=== PATIENT | male | born 1985 | race Caucasian/White ===

== ENCOUNTER 2018-01-18 16:55 | Emergency (ER) | payer OTHER ==
[~2018-01-18] VITALS: Ht 182.9 cm; Wt 84.8 kg
[~2018-01-18 16:55] MED LIST: ACEBUTCAFT PO; ACET325 PO; AMOX500 PO; AZIT500 PO; Amoxicillin500 M1 PO; CEPH500 PO; ERYT.5TO OS; HYDACE5 PO; HYDCOR1TC TOP; IBUP200 PO; KETO10 PO; NAPR500 PO; Naprosyn500 MG PO; OXYACE5T PO; PENVK500 PO; PERM5TC TOP; PROM25 PO; PSEU120ER PO; Percocet 5-3251 EACH PO; RXHYD5325 PO; RXHYDACE PO; TRAM50 PO; Veetids 500500 MG PO; [UNRECOGNIZED DRUG - REMARK]
== END 2018-01-18 17:58 | disposition home or self-care (01) ==
LOC: ER 16:55
DX: M79.672 Pain in left foot (principal); F17.200 Nicotine dependence, unspecified, uncomplicated
CPT/HCPCS: 73630; 99283

== ENCOUNTER → 2020-02-03 | Outpatient (CLI) | payer OTHER | LOC: LAB SHORT 15:01 → LAB EV 15:01 | DX: L02.91 Cutaneous abscess, unspecified (principal) | CPT/HCPCS: 87070; 87075; 87205 ==